=== PATIENT | male | born 1980 | race Caucasian/White ===

== ENCOUNTER 2019-04-14 11:54 | Emergency (ER) | payer SELFPAY ==
[~2019-04-14] VITALS: Ht 165.1 cm; Wt 75.4 kg
[~2019-04-14 11:54] MED LIST: CARB-155 LEFT EAR; OFLO5DRO7 LEFT EAR
[2019-04-14 11:57] VITALS: Ht 165.1 cm; Wt 75.4 kg
[2019-04-14 13:49] VITALS: BP 126/88; PULSE 70; RESP 18
--- NOTE | 2019-04-16 12:32 | ERD ---
ER Documentation Chief Complaint Chief Complaint see 04/14/19 left ear apin since last night HPI 38-year-old male with no significant past medical history presents with left ear pain x1 day. He states that the pain is a pulsatile type of pain, rated 8 out of 10, constant, nonradiating. Denies any fevers or chills. Denies chest pain or shortness of breath. No cough noted, no headache noted. Denies abdominal pain, nausea, vomiting. No other modifying factors noted. No treatments tried at home. ROS All systems reviewed and are negative except as per history of present illness. Medications Home Meds Active Scripts Ofloxacin Otic (Ofloxacin Otic) 5 Ml Drops, 5 DROP LEFT EAR DAILY for ear infection for 7 Days, #1 BOTTLE Prov:SARAH DRIVER DO 04/14/19 Carbamide Peroxide* (Debrox*) 6.5% -15 Ml Drops, 10 DROP LEFT EAR BID for ear wax for 5 Days, #1 BOTTLE Prov:SARAH DRIVER DO 04/14/19 PMhx/Soc Medical and Surgical Hx: pt denies Medical Hx, pt denies Surgical Hx Hx Alcohol Use: No Hx Substance Use: No Hx Tobacco Use: No Smoking Status: Never smoker FmHx Family History: No coronary disease Physical Exam Vitals Vital Signs Date Temp Pulse Resp B/P (MAP) Pulse Ox O2 O2 Flow FiO2 Time Delivery Rate 04/14/19 97.8 70 18 126/88 98 Room Air 13:49 (101) 04/14/19 98.1 75 20 118/72 98 11:57 (87) Physical Exam Const: No acute distress Head: Atraumatic Eyes: Normal Conjunctiva ENT: Left ear canal with cerumen noted and some discharge, Nose and Mouth examination normal. Neck: Full range of motion. No meningismus. Resp: Clear to auscultation bilaterally Cardio: Regular rate and rhythm, no murmurs Skin: No petechiae or rashes Ext: No cyanosis, or edema Neur: Awake and alert Psych: Normal Mood and Affect Procedures/MDM Medical Decision Making: Differential diagnosis includes but not limited to otitis externa, otitis media, eustachian tube dysfunction, mastoiditis, TMJ dysfunction, foreign body Patient appeared well on exam. Left ear canal examination consistent with cerumen impaction and otitis externa Left ear canal was irrigated in the ER, patient tolerating the procedure well. He states symptoms improved somewhat Patient given prescription for supportive medication(s) and well as antibiotic ear drop. Patient advised to follow up with PCP in 1-2 days. Patient advised to return to ED for new or worsening symptoms. Patient stable on discharge from the ED. Disclaimer: Inadvertent spelling and grammatical errors are likely due to EHR/dictation software use and do not reflect on the overall quality of patient care. Also, please note that the electronic time recorded on this note does not necessarily reflect the actual time of the patient encounter. Departure Diagnosis: Primary Impression: Left ear pain Condition: Fair Patient Instructions: Ear Wax, Treated, Ofloxacin Ear drops, solution Referrals: [facility] YOU HAVE RECEIVED A MEDICAL SCREENING EXAM AND THE RESULTS INDICATE THAT YOU DO NOT HAVE A CONDITION THAT REQUIRES URGENT TREATMENT IN THE EMERGENCY DEPARTMENT. FURTHER EVALUATION AND TREATMENT OF YOUR CONDITION CAN WAIT UNTIL YOU ARE SEEN IN YOUR DOCTORS OFFICE WITHIN THE NEXT 1-2 DAYS. IT IS YOUR RESPONSIBILITY TO MAKE AN APPOINTMENT FOR FOLOW-UP CARE. IF YOU HAVE A PRIMARY DOCTOR --you should call your primary doctor and schedule an appointment IF YOU DO NOT HAVE A PRIMARY DOCTOR YOU CAN CALL OUR PHYSICIAN REFERRAL HOTLINE AT IF YOU CAN NOT AFFORD TO SEE A PHYSICIAN YOU CAN CHOSE FROM THE FOLLOWING [facility] [address] [facility]. [facility] [address] [facility]. [facility] [address] [facility] [address] [facility]. [facility] [address] [facility]. [facility]. [address] Additional Instructions: Call your primary care doctor TOMORROW for an appointment during the next 1-2 days.See the doctor sooner or return here if your condition worsens before your appointment time. SARAH DRIVER DO Apr 16, 2019 12:32
== END 2019-04-14 13:58 | disposition home or self-care (01) ==
LOC: FTE 11:54
DX: H61.22 Impacted cerumen, left ear (principal); H60.312 Diffuse otitis externa, left ear